=== PATIENT | female | born 1955 | race Caucasian/White ===

== ENCOUNTER 2023-09-22 05:07 | Emergency (ER) | payer MEDICARE, MEDICAID ==
[~2023-09-22] VITALS: Ht 162.6 cm; Wt 95.3 kg
[2023-09-22] MEDS ORDERED: ATOR10TA PO (05:18)
[2023-09-22] MEDS ORDERED: METF-442 PO (05:18)
[2023-09-22] MEDS ORDERED: LOSA25TA27 PO (05:18)
[2023-09-22] MEDS ORDERED: PIPERACILLIN/TAZOBACTAM/D5W 50 ML IV ONE (05:49)
[2023-09-22 05:50] LABS: BASOPHILS % (AUTO) 0.3 % (0.0-2.0); EOSINOPHILS # (AUTO) 0.1 K/uL (0.0-0.7); EOSINOPHILS % (AUTO) 0.6 % (0.0-7.0); HEMATOCRIT 38.9 % (31.2-41.9); HEMOGLOBIN 12.6 g/dL (10.9-14.3); LYMPHOCYTES # (AUTO) 1.1 K/uL (0.8-4.8); LYMPHOCYTES % (AUTO) 13.2 % (20.5-51.5); MEAN CORPUSCULAR HGB CONC 32 g/dL (32.3-35.6); MEAN CORPUSCULAR VOLUME 92.9 fL (75.5-95.3); MONOCYTES # (AUTO) 0.4 K/uL (0.1-1.30); MONOCYTES % (AUTO) 4.3 % (0.0-11.0); NEUTROPHILS # (AUTO) 6.9 K/uL (1.8-8.9); NEUTROPHILS % (AUTO) 81.6 % (38.5-71.5); PLATELET COUNT (AUTO) 268 K/uL (179-408); RED BLOOD CELL COUNT(AUTO) 4.19 MIL/uL (3.63-4.92); RED CELL DISTRIBUTION WIDTH 15.8 % (12.3-17.7); WHITE BLOOD COUNT (AUTO) 8.4 K/uL (3.8-11.8)
[2023-09-22] MEDS ORDERED: DEXAMETHASONE SOD PHOSPHATE 4 MG INJ ONE (05:50)
[2023-09-22] MEDS ORDERED: DEXAMETHASONE SOD PHOSPHATE 10 MG INJ ONE (05:50)
[2023-09-22] MEDS ORDERED: ONDANSETRON 4 MG/2 ML VIAL ONE (05:50)
[2023-09-22] MEDS ORDERED: diphenhydrAMINE 50 MG/1 ML VIAL ONE (05:51)
[2023-09-22] MEDS ORDERED: HYDROMORPHONE 1 MG/1 ML DISP.SYRIN ONE (05:51)
[2023-09-22 05:52] LABS: DIFFERENTIAL COMMENT 1
[2023-09-22] MEDS: PIPERACILLIN SODIUM/TAZOBACTAM 3.375 G in IV DEXTROSE 5% 50 ML IV ONE (05:55)
[2023-09-22] MEDS: diphenhydrAMINE 50 MG/1 ML VIAL IV ONE (05:56)
[2023-09-22] MEDS: ONDANSETRON 4 MG/2 ML VIAL IV ONE (05:56)
[2023-09-22 05:58] LABS: CALCIUM 9.4 mg/dL (8.5-10.1); CREATININE 0.7 mg/dL (0.6-1.3); POTASSIUM 3.9 mmol/L (3.5-5.1)
[2023-09-22] MEDS: DEXAMETHASONE SOD PHOSPHATE 4 MG INJ IV ONE (05:58)
[2023-09-22] MEDS: HYDROMORPHONE 1 MG/1 ML DISP.SYRIN IV ONE (05:59)
[2023-09-22 06:04] LABS: ALBUMIN 3.6 g/dL (3.4-5.0); BILIRUBIN,TOTAL 0.5 mg/dL (0.2-1.0); TOTAL PROTEIN, SERUM 7.8 g/dL (6.4-8.2)
[2023-09-22 10:32] LABS: ABG BASE EXCESS -0.1 mmol/L (-2.0-2.0); ABG HCO3 24.2 mmol/L (22.0-26.0); ABG PCO2 38.3 mmHg (35.0-48.0); ABG PH 7.419 (7.340-7.440); ABG PO2 57.1 mmHg (75.0-100.0); ABG SITE RIGHT RADIAL; ABG TOTAL HEMOGLOBIN 12.9 G/dL (12.0-16.0); AaDO2 90.3 mmHg; COHb 0.4 % (0.0-3.9); MetHb 0.1 % (0.0-1.5); O2Hb 88.7 % (94.0-97.0)
[2023-09-22] MEDS ORDERED: ALBUTEROL SULFATE 2.5 MG/3 ML NEBU ONE (10:36)
[2023-09-22] MEDS ORDERED: BUDESONIDE 0.5 MG/2 ML NEBU ONE (10:36)
[2023-09-22] MEDS: BUDESONIDE 0.5 MG/2 ML NEBU NEB ONE (11:04)
[2023-09-22] MEDS: ALBUTEROL SULFATE 2.5 MG/3 ML NEBU NEB ONE (11:04)
[2023-09-22] MEDS ORDERED: AMLODIPINE 5 MG TABLET ONE (11:10)
[2023-09-22] MEDS ORDERED: AMLO5TAB4 PO (11:14)
[2023-09-22] MEDS ORDERED: AMOX-430 PO (11:14)
[2023-09-22] MEDS ORDERED: PRED20TA PO (11:14)
[2023-09-22] MEDS: AMLODIPINE 5 MG TABLET PO ONE (11:16)
[2023-09-22 11:30] VITALS: BP 142/92; TEMP 97.9; O2SAT 95
== END 2023-09-22 11:20 | disposition home or self-care (01) ==
LOC: ER 05:18
DX: K12.2 Cellulitis and abscess of mouth (principal); T78.3XXA Angioneurotic edema, initial encounter; I45.5 Other specified heart block; E78.5 Hyperlipidemia, unspecified; E11.9 Type 2 diabetes mellitus without complications; E78.00 Pure hypercholesterolemia, unspecified; Z20.822 Contact with and (suspected) exposure to COVID-19; Z79.84 Long term (current) use of oral hypoglycemic drugs; Z79.899 Other long term (current) drug therapy; Y92.89 Other specified places as the place of occurrence of the external cause
CPT/HCPCS: 99284; 96365; 96375; 87426; 87804 ×2; 80053; 85025; 86403; 87040 ×2; 36415; 94640; 82803; 36600 ×2; J1100 ×2; J1200; J2405; J2543; J1170; A4606; A4663

== ENCOUNTER 2024-04-19 12:59 | Emergency (ER) | payer MEDICARE, OTHER ==
[~2024-04-19] VITALS: Ht 162.6 cm; Wt 95.3 kg
[~2024-04-19 12:59] MED LIST: AMLO5TAB4 PO; AMOX-430 PO; ATOR10TA PO; LOSA25TA27 PO; METF-442 PO; PRED20TA PO
[2024-04-19 13:50] LABS: BASOPHILS % (AUTO) 0.5 % (0.0-2.0); EOSINOPHILS # (AUTO) 0.1 K/uL (0.0-0.7); EOSINOPHILS % (AUTO) 1.7 % (0.0-7.0); HEMOGLOBIN 11.6 g/dL (10.9-14.3); LYMPHOCYTES % (AUTO) 44.8 % (20.5-51.5); MEAN CORPUSCULAR HEMOGLOBIN 30.7 uug (24.7-32.8); MEAN CORPUSCULAR HGB CONC 33 g/dL (32.3-35.6); MEAN CORPUSCULAR VOLUME 92.5 fL (75.5-95.3); MONOCYTES # (AUTO) 0.2 K/uL (0.1-1.30); MONOCYTES % (AUTO) 5.2 % (0.0-11.0); NEUTROPHILS # (AUTO) 2.1 K/uL (1.8-8.9); NEUTROPHILS % (AUTO) 47.8 % (38.5-71.5); PLATELET COUNT (AUTO) 296 K/uL (179-408); RED BLOOD CELL COUNT(AUTO) 3.78 MIL/uL (3.63-4.92); RED CELL DISTRIBUTION WIDTH 16.2 % (12.3-17.7); WHITE BLOOD COUNT (AUTO) 4.4 K/uL (3.8-11.8)
[2024-04-19 13:56] LABS: DIFFERENTIAL COMMENT 1
[2024-04-19 13:57] LABS: CALCIUM 9.3 mg/dL (8.5-10.1); CREATININE 0.7 mg/dL (0.6-1.3); POTASSIUM 4.1 mmol/L (3.5-5.1)
[2024-04-19 14:03] LABS: ALBUMIN 3.5 g/dL (3.4-5.0); BILIRUBIN,DIRECT 0.1 mg/dL (0.0-0.2); BILIRUBIN,TOTAL 0.3 mg/dL (0.2-1.0); TOTAL PROTEIN, SERUM 7.8 g/dL (6.4-8.2)
[2024-04-19 14:50] LABS: *BILIRUBIN,URIN NEGATIVE (NEGATIVE); *BLOOD, URINE NEGATIVE (NEGATIVE); *CLARITY,URINE CLEAR (CLEAR); *COLOR,URINE YELLOW (YELLOW); *KETONES,URINE NEGATIVE (NEGATIVE); *PROTEIN,URINE NEGATIVE (NEGATIVE); *UROBILINOGEN,URINE 0.2 E.U./dl (NORMAL); LEUKOCYTE ESTERASE ,URINE NEGATIVE (NEGATIVE); NITRITE, URINE NEGATIVE (NEGATIVE); UGLUCOSE NEGATIVE (NEGATIVE)
[2024-04-19] MEDS: IV NS 1000 ML 1,000 ML IV ONE (15:05)
[2024-04-19] MEDS ORDERED: METOCLOPRAMIDE HCL 10 MG/2 ML VIAL ONE (15:33)
[2024-04-19] MEDS ORDERED: MORPHINE SULFATE 2 MG/1 ML DISP.SYRIN ONE (15:33)
[2024-04-19] MEDS: METOCLOPRAMIDE HCL 10 MG/2 ML VIAL IV ONE (15:38)
[2024-04-19] MEDS: MORPHINE SULFATE 2 MG/1 ML DISP.SYRIN IV ONE (15:38)
[2024-04-19] MEDS ORDERED: DICY20TA11 PO (16:59)
[2024-04-19 17:50] VITALS: BP 153/93; O2SAT 99
[2024-04-19] MEDS ORDERED: HYDR-3980 PO (18:16)
[2024-04-22] MEDS ORDERED: OXYC-128 PO (10:49)
== END 2024-04-19 17:53 | disposition home or self-care (01) ==
LOC: ER 12:59
DX: R10.11 Right upper quadrant pain (principal); E11.9 Type 2 diabetes mellitus without complications; I11.9 Hypertensive heart disease without heart failure; E78.00 Pure hypercholesterolemia, unspecified; Z79.52 Long term (current) use of systemic steroids; Z79.84 Long term (current) use of oral hypoglycemic drugs; Z79.899 Other long term (current) drug therapy
CPT/HCPCS: 99285; 74176; 96374; 96361; 76705; 96375; 80076; 80048; 81003; 83690; 85025; 36415; J2765; J2270; J7040; A4606; A4663

== ENCOUNTER 2024-04-21 17:16 | Emergency (ER) | payer MEDICARE, OTHER ==
[~2024-04-21] VITALS: Ht 162.6 cm; Wt 95.3 kg
[~2024-04-21 17:16] MED LIST changes: +DICY20TA11 PO; +HYDR-3980 PO
[2024-04-21] MEDS ORDERED: OXYCODONE HCL 5 MG TABLET ONE (17:39)
[2024-04-21] MEDS ORDERED: VALACYCLOVIR HCL 500 MG TABLET ONE (17:39)
[2024-04-21] MEDS: VALACYCLOVIR HCL 500 MG TABLET PO ONE (17:42)
[2024-04-21] MEDS: OXYCODONE HCL 5 MG TABLET PO ONE (17:43)
[2024-04-21] MEDS ORDERED: GABA-532 PO (17:51)
[2024-04-21] MEDS ORDERED: VALA100026 PO (17:51)
[2024-04-21] MEDS ORDERED: OXYC-128 PO (17:51)
[2024-04-21 18:13] VITALS: BP 144/76; O2SAT 99
[2024-04-22] MEDS ORDERED: OXYC-128 PO (10:49)
== END 2024-04-21 18:15 | disposition home or self-care (01) ==
LOC: ER 17:26
DX: B02.9 Zoster without complications (principal); R10.31 Right lower quadrant pain; E11.9 Type 2 diabetes mellitus without complications; E78.00 Pure hypercholesterolemia, unspecified; Z79.52 Long term (current) use of systemic steroids; Z79.624 Long term (current) use of inhibitors of nucleotide synthesis; Z79.84 Long term (current) use of oral hypoglycemic drugs; Z79.899 Other long term (current) drug therapy
CPT/HCPCS: A4606; A4663